=== PATIENT | male | born 1970 | race Caucasian/White ===

== ENCOUNTER 2017-10-10 12:36 | Emergency (ER) | payer OTHER ==
[2017-10-10 13:11] LABS: #Lymphocytes 1.2 thou/uL (1.20-3.40); #Monocytes 0.5 thou/uL (0.11-0.59); #Neutrophils 3.3 thou/uL (1.40-6.50); %Basophils 0.7 % (0.0-1.0); %Lymphocytes 23.3 % (21.0-51.0); %Monocytes 9.3 % (0.0-10.0); Hematocrit 39.2 % (42.0-52.0); Mean Platelet Volume 8.7 fL (7.4-10.4); Red Blood Cell (RBC) Count 4.24 mill/uL (4.70-6.10)
[2017-10-10] MEDS ORDERED: Ondansetron HCl/PF 4 MG/2 ML Vial ONE (13:11)
[2017-10-10] MEDS ORDERED: Morphine 4 MG/ML Carpuject ONE (13:11)
[2017-10-10 13:23] LABS: Lactic Acid - Sepsis 0.7 mmol/L (0.5-2.2)
[2017-10-10 13:26] LABS: Anion Gap 16 mmol/L (10-20); BUN (Urea Nitrogen) 19 mg/dL (8.9-20.6); Calc. Creatinine Clearance 0 mL/min (70-130); Carbon Dioxide 22 mmol/L (22-29); Chloride 103 mmol/L (98-107); Estimated GFR-MDRD Greater than 90
--- NOTE | 2017-10-10 14:59 | RAD ---
LEFT KNEE: Four views. HISTORY: Left knee pain and swelling. FINDINGS: There has been prior fixation in the proximal tibia with 2 screws seen in the proximal diaphysis/meta physeal region. There are mild degenerative changes with spurring from the condyles and minimal spur ring from the patella. Fullness in the suprapatellar region suggests a small joint effusion. IMPRESSION: Postoperative and degenerative changes of left knee. Evidence of small joint effusion. No acute fra cture identified. POS: MARC
--- NOTE | 2017-10-10 15:12 | ULT ---
LEFT LOWER EXTREMITY VENOUS DUPLEX EXAM: TECHNIQUE: Deep veins of left lower extremity evaluated with color Doppler, spectral analysis, and compression. HISTORY: Left lower extremity pain and edema. FINDINGS: Deep veins of left lower extremity show normal blood flow and compression. No evidence of DVT. IMPRESSION: No evidence of left lower extremity deep vein thrombosis. POS: ADRYAN
== END 2017-10-10 14:45 | disposition home or self-care (01) ==
LOC: SCSER 12:36
DX: M25.462 Effusion, left knee (principal); F31.9 Bipolar disorder, unspecified; F17.210 Nicotine dependence, cigarettes, uncomplicated; E16.2 Hypoglycemia, unspecified; Z79.899 Other long term (current) drug therapy
CPT/HCPCS: 80048; 83605; 85025; 96374; 96375; 99406; J2270; J2405

== ENCOUNTER 2019-03-11 10:28 | Emergency (ER) | payer OTHER ==
[~2019-03-11 10:28] MED LIST: Iopamidol 370 76% 100 ML VIAL ONE
[2019-03-11] MEDS ORDERED: Dexamethasone 10 MG/ML VIAL ONE (11:11)
[2019-03-11] MEDS ORDERED: Dexamethasone 4 MG TAB ONE (11:11)
[2019-03-11] MEDS ORDERED: Ketorolac Tromethamine 30 MG/ML VIAL ONE (11:11)
[2019-03-11 11:31] LABS: #Basophils 0.1 thou/uL (0.0-0.2); #Eosinphils 0.1 thou/uL (0.0-0.7); #Lymphocytes 1.4 thou/uL (1.20-3.40); #Monocytes 0.6 thou/uL (0.11-0.59); #Neutrophils 4.1 thou/uL (1.40-6.50); %Eosinophils 1.2 % (0.0-10.0); %Lymphocytes 23.1 % (21.0-51.0); %Monocytes 9.1 % (0.0-10.0); %Neutrophils 65.6 % (42.0-75.0); Hemoglobin 13.7 g/dL (14.0-18.0); Mean Corpuscular HGB CONC 33.7 g/dL (32.0-36.0); Mean Corpuscular Hemoglobin 30.8 pg (27.0-31.0); Mean Corpuscular Volume 91.5 fL (78.0-98.0); Mean Platelet Volume 8.5 fL (7.4-10.4); Platelet Count 199 thou/uL (130-400); RBC Distribution Width 12.2 % (11.5-14.5); Red Blood Cell (RBC) Count 4.45 mill/uL (4.70-6.10); White Blood Cell (WBC) Count 6.3 thou/uL (4.8-10.8)
[2019-03-11 11:49] LABS: ALT (SGPT) 13 U/L (8-55); AST (SGOT) 17 U/L (5-34); Albumin 4.1 g/dL (3.5-5.0); Alkaline Phosphatase 53 U/L (40-150); Anion Gap 12 mmol/L (10-20); BUN (Urea Nitrogen) 19 mg/dL (8.9-20.6); Bilirubin, Total 0.3 mg/dL (0.2-1.2); Calc. Creatinine Clearance 0 mL/min (70-130); Calcium 9.5 mg/dL (7.8-10.44); Carbon Dioxide 24 mmol/L (22-29); Chloride 105 mmol/L (98-107); Estimated GFR-MDRD Greater than 90; Globulin 3.5 g/dL (2.4-3.5); Glucose 98 mg/dL (70-105); Potassium 4.2 mmol/L (3.5-5.1); Protein, Total 7.6 g/dL (6.0-8.3); Sodium 137 mmol/L (136-145)
--- NOTE | 2019-03-11 11:59 | CT ---
CT of the neck with IV contrast: 03/11/2019 COMPARISON: None HISTORY: Swelling of the neck on the right, evaluate for lymphadenopathy TECHNIQUE: Axial CT imaging at 2 mm intervals from the skull base through the lung apices with IV con trast. Coronal reformatted imaging is obtained. FINDINGS: The imaged brain parenchyma appears unremarkable. The imaged paranasal sinuses and mastoid air cells appear well-aerated. The retroantral fat and the parapharyngeal fat appears clear bilaterally. The parotid duct is dilated within the parotid gland as well as anterior to the parotid gland bilater ally. No sialolith is appreciated in the region of the parotid gland or along the course of the parotid duct on either side. The submandibular gland on the left appears unremarkable. Submandibular gland on the right is hyperdense, enlarged, and demonstrates intragland ductal dilation . There is a prominent sialolith at the superior medial margin of the submandibular gland on the right measuring 1.1 cm. There is stranding of the fat adjacent to the enlarged right submandibular gl and consistent with sialoadenitis. The imaged lung apices demonstrate biapical subpleural emphysematous change. The tonsillar pillars, epiglottis and epiglottic fat, hyoid bone, thyroid cartilage, cricoid cartilag e, and thyroid gland demonstrate no acute findings. There is no lymphadenopathy evident on either side. The vascular structures of the neck appear patent. Review of the osseous structures demonstrates no worrisome lytic or blastic lesions. IMPRESSION: The submandibular gland on the right is enlarged and hyperdense with adjacent inflammator y fat stranding consistent with sialoadenitis. This is associated with a prominent sialolith measuring 1.1 cm abutting the superior medial aspect of the right submandibular gland within the prox imal aspect of Sarpy's duct.
[2019-03-11] MEDS ORDERED: CEFAZOLIN 1 GM VIAL ONE (12:42)
== END 2019-03-11 12:50 | disposition home or self-care (01) ==
LOC: SCSER 10:28
DX: K11.5 Sialolithiasis (principal); F31.9 Bipolar disorder, unspecified
CPT/HCPCS: 70491; 80053; 84443; 85025; 96374; 96375; J0690; J1100; J1885; J8540; Q9967

== ENCOUNTER 2022-03-15 15:59 | Emergency (ER) | payer OTHER | END 2022-03-15 18:05 | disposition home or self-care (01) | LOC: EEVIPCON 15:59 → ERS 15:59 | DX: M25.511 Pain in right shoulder (principal); F17.210 Nicotine dependence, cigarettes, uncomplicated; Z79.899 Other long term (current) drug therapy ==

== ENCOUNTER 2022-11-24 16:28 | Inpatient (IN) | payer OTHER ==
[~2022-11-24 16:28] MED LIST changes: -Iopamidol 370 76% 100 ML VIAL ONE; +Iopamidol-370 76% 500 ML 1 ML ONE
[2022-11-24] MEDS ORDERED: Fentanyl 100 MCG/2 ML VIAL ONE (16:37)
[2022-11-24 16:43] LABS: #Lymphocytes 1.3 thou/uL (1.20-3.40); #Monocytes 0.6 thou/uL (0.11-0.59); #Neutrophils 4.7 thou/uL (1.40-6.50); %Basophils 0.6 % (0.0-1.0); %Eosinophils 0.6 % (0.0-10.0); %Lymphocytes 19.7 % (21.0-51.0); %Monocytes 8.8 % (0.0-10.0); %Neutrophils 70.2 % (42.0-75.0); Hemoglobin 9.8 g/dL (14.0-18.0); Mean Corpuscular Hemoglobin 31.4 pg (27.0-31.0); Mean Corpuscular Volume 95.1 fl (78.0-98.0); Mean Platelet Volume 9.4 fL (7.4-10.4); Platelet Count 171 10x3/uL (130-400); RBC Distribution Width 12.2 % (11.5-14.5); Red Blood Cell (RBC) Count 3.13 mill/uL (4.70-6.10); White Blood Cell (WBC) Count 6.7 10x3/uL (4.8-10.8)
[2022-11-24] MEDS ORDERED: Ipratropium/Albuterol 3 ML NEB NEB PRN (17:05)
[2022-11-24] MEDS ORDERED: Dextrose 5% in Water 1,000 ML IV PRN (17:05)
[2022-11-24] MEDS ORDERED: hydrALAZINE 20 MG/ML VIAL SLOW IVP PRN (17:05)
[2022-11-24] MEDS ORDERED: Dextrose 50% Abboject 50 ML SYRINGE SLOW IVP PRN (17:05)
[2022-11-24] MEDS ORDERED: Ondansetron PF 4 MG/2 ML Vial IVP PRN (17:05)
[2022-11-24] MEDS ORDERED: Ibuprofen 200 MG TAB PO PRN (17:08)
[2022-11-24 17:15] LABS: INR-International Normal Ratio 1.3; Prothrombin Time 16.9 sec (12.0-14.7)
[2022-11-24] MEDS ORDERED: Sodium Chloride 0.9% 1,000 ML IV SCH (17:15)
[2022-11-24 17:16] LABS: PTT 29.7 sec (22.9-36.1)
[2022-11-24 17:29] LABS: Albumin 2.7 g/dL (3.5-5.0)
[2022-11-24 17:30] LABS: Chloride 114 mmol/L (98-107); Potassium 3.7 mmol/L (3.5-5.1); Sodium 139 mmol/L (136-145)
[2022-11-24 17:31] LABS: Glucose 107 mg/dL (70-105)
[2022-11-24 17:32] LABS: Globulin 2.2 g/dL (2.4-3.5); Protein, Total 4.9 g/dL (6.0-8.3)
[2022-11-24 17:33] LABS: Anion Gap 11 mmol/L (10-20); Bilirubin, Total 0.3 mg/dL (0.2-1.2); Carbon Dioxide 18 mmol/L (22-29)
[2022-11-24 17:36] LABS: Alkaline Phosphatase 34 U/L (40-110); BUN (Urea Nitrogen) 17 mg/dL (8.4-25.7); Calc. Creatinine Clearance 0 mL/min (70-130); Estimated GFR 105
[2022-11-24 17:37] LABS: ALT (SGPT) 8 U/L (8-55); AST (SGOT) 15 U/L (5-34)
[2022-11-24 17:54] LABS: Calcium 6.5 mg/dL (7.8-10.44)
[2022-11-24] MEDS: Fentanyl 100 MCG/2 ML VIAL SLOW IVP PRN ×2 (18:45→21:30)
[2022-11-24 18:46] LABS: SARS-CoV-2 NAA Rapid Test Not Detected (NotDetected)
[2022-11-24] MEDS ORDERED: Calcium Chloride 13.6 MEQ in Sodium Chloride 0.9% 100 ML IVPB SCH (20:00)
[2022-11-24] MEDS: Gabapentin 300 MG CAP PO SCH (20:31)
[2022-11-24] MEDS: Cyclobenzaprine 10 MG TAB PO PRN (20:31)
[2022-11-24] MEDS: Senokot S 8.6-50 MG TAB PO SCH (20:31)
[2022-11-24] MEDS: Famotidine/PF 20 mg/2ml Vial SLOW IVP SCH (20:33)
[2022-11-24] MEDS: CEFAZOLIN 2 GM in Sodium Chloride 0.9% 100 ML IVPB SCH (20:34)
[2022-11-24] MEDS: Acetaminophen 500 MG TAB PO SCH (23:04)
[2022-11-24] MEDS: traMADol HCl 50 MG TAB PO SCH (23:05)
[2022-11-25] MEDS: Fentanyl 100 MCG/2 ML VIAL SLOW IVP PRN ×6 (00:11→22:20)
[2022-11-25 00:54] VITALS: BMI 24.3
[2022-11-25] MEDS: CEFAZOLIN 2 GM in Sodium Chloride 0.9% 100 ML IVPB SCH ×3 (04:13→20:00)
[2022-11-25 05:13] LABS: #Lymphocytes 1.4 thou/uL (1.20-3.40); #Monocytes 0.6 thou/uL (0.11-0.59); #Neutrophils 4.6 thou/uL (1.40-6.50); %Basophils 0.2 % (0.0-1.0); %Eosinophils 0.2 % (0.0-10.0); %Lymphocytes 20.9 % (21.0-51.0); %Monocytes 9.4 % (0.0-10.0); %Neutrophils 69.2 % (42.0-75.0); Hemoglobin 11.2 g/dL (14.0-18.0); Mean Corpuscular HGB CONC 32.9 g/dL (32.0-36.0); Mean Corpuscular Hemoglobin 30.5 pg (27.0-31.0); Mean Corpuscular Volume 92.6 fl (78.0-98.0); Mean Platelet Volume 8.6 fL (7.4-10.4); Platelet Count 200 10x3/uL (130-400); RBC Distribution Width 13.4 % (11.5-14.5); Red Blood Cell (RBC) Count 3.66 mill/uL (4.70-6.10); White Blood Cell (WBC) Count 6.6 10x3/uL (4.8-10.8)
[2022-11-25 05:44] LABS: Anion Gap 11 mmol/L (10-20); BUN (Urea Nitrogen) 20 mg/dL (8.4-25.7); Calc. Creatinine Clearance 125 mL/min (70-130); Calcium 8.3 mg/dL (7.8-10.44); Carbon Dioxide 21 mmol/L (22-29); Chloride 108 mmol/L (98-107); Estimated GFR 107; Glucose 81 mg/dL (70-105); Magnesium 1.8 mg/dL (1.6-2.6); Phosphorus 4.2 mg/dL (2.3-4.7); Potassium 3.8 mmol/L (3.5-5.1); Sodium 136 mmol/L (136-145)
[2022-11-25] MEDS: Acetaminophen 500 MG TAB PO SCH ×3 (06:11→17:52)
[2022-11-25] MEDS: traMADol HCl 50 MG TAB PO SCH ×3 (06:11→17:53)
[2022-11-25] MEDS: Cyclobenzaprine 10 MG TAB PO PRN ×3 (06:12→22:25)
[2022-11-25] MEDS: Famotidine/PF 20 mg/2ml Vial SLOW IVP SCH ×2 (08:40→22:26)
[2022-11-25] MEDS: Gabapentin 300 MG CAP PO SCH ×3 (08:40→22:25)
[2022-11-25] MEDS: Senokot S 8.6-50 MG TAB PO SCH ×2 (08:40→22:26)
[2022-11-25] MEDS: Polyethylene Glycol 3350 17 GM Packet PO SCH (08:41)
[2022-11-25] MEDS ORDERED: TETANUS, DIPHTHERIA TOX,ADULT (TDVAX) 0.5 ML VIAL IM ONE (11:36)
[2022-11-25] MEDS: Cephalexin 250 MG CAP PO SCH (17:52)
[2022-11-26] MEDS: Cephalexin 250 MG CAP PO SCH ×4 (00:20→18:05)
[2022-11-26] MEDS: Acetaminophen 500 MG TAB PO SCH ×4 (00:20→18:06)
[2022-11-26] MEDS: Fentanyl 100 MCG/2 ML VIAL SLOW IVP PRN ×3 (00:25→10:30)
[2022-11-26] MEDS: traMADol HCl 50 MG TAB PO SCH ×4 (00:32→18:07)
[2022-11-26] MEDS: CEFAZOLIN 2 GM in Sodium Chloride 0.9% 100 ML IVPB SCH (05:30)
[2022-11-26] MEDS ORDERED: TETANUS, DIPHTHERIA TOX,ADULT (TDVAX) 0.5 ML VIAL IM ONE (08:30)
[2022-11-26] MEDS: Polyethylene Glycol 3350 17 GM Packet PO SCH (09:38)
[2022-11-26] MEDS: Bacitracin 1 PK TOP PRN (09:39)
[2022-11-26] MEDS: Famotidine/PF 20 mg/2ml Vial SLOW IVP SCH ×2 (09:39→20:52)
[2022-11-26] MEDS: Gabapentin 300 MG CAP PO SCH ×3 (09:39→20:52)
[2022-11-26] MEDS: Senokot S 8.6-50 MG TAB PO SCH ×2 (09:39→20:52)
[2022-11-27] MEDS: Acetaminophen 500 MG TAB PO SCH ×4 (00:21→18:06)
[2022-11-27] MEDS: Cephalexin 250 MG CAP PO SCH ×4 (00:21→18:06)
[2022-11-27] MEDS: traMADol HCl 50 MG TAB PO SCH ×2 (00:21→05:48)
[2022-11-27] MEDS: Famotidine 20 MG TAB PO SCH ×2 (08:45→20:19)
[2022-11-27] MEDS: Polyethylene Glycol 3350 17 GM Packet PO SCH (08:45)
[2022-11-27] MEDS: Gabapentin 300 MG CAP PO SCH ×3 (08:45→20:19)
[2022-11-27] MEDS: Cyclobenzaprine 10 MG TAB PO PRN ×2 (08:45→18:06)
[2022-11-27] MEDS: Senokot S 8.6-50 MG TAB PO SCH ×2 (08:45→20:19)
[2022-11-28] MEDS: Cephalexin 250 MG CAP PO SCH ×5 (00:47→23:25)
[2022-11-28] MEDS: Acetaminophen 500 MG TAB PO SCH ×4 (00:47→18:08)
[2022-11-28] MEDS: Senokot S 8.6-50 MG TAB PO SCH ×2 (09:09→21:13)
[2022-11-28] MEDS: Polyethylene Glycol 3350 17 GM Packet PO SCH (09:09)
[2022-11-28] MEDS: Famotidine 20 MG TAB PO SCH ×2 (09:10→21:12)
[2022-11-28] MEDS: Gabapentin 300 MG CAP PO SCH ×3 (09:10→21:13)
[2022-11-28] MEDS: Cyclobenzaprine 10 MG TAB PO PRN (09:10)
[2022-11-28] MEDS: Lorazepam 0.5 MG TAB PO PRN ×2 (11:44→18:11)
[2022-11-28] MEDS: Bacitracin 1 PK TOP PRN (14:54)
[2022-11-28] MEDS ORDERED: Acetaminophen 325 MG TAB PO SCH (18:45)
[2022-11-28] MEDS ORDERED: Acetaminophen/Codeine 30-300mg Tablet PO SCH (18:45)
[2022-11-28] MEDS: Acetaminophen 325 MG TAB PO SCH (23:24)
[2022-11-28] MEDS: Acetaminophen/Codeine 30-300mg Tablet PO SCH (23:25)
[2022-11-29] MEDS: Cyclobenzaprine 10 MG TAB PO PRN ×2 (01:58→15:05)
[2022-11-29] MEDS: Acetaminophen/Codeine 30-300mg Tablet PO SCH ×4 (05:07→22:55)
[2022-11-29] MEDS: Acetaminophen 325 MG TAB PO SCH (05:07)
[2022-11-29] MEDS: Cephalexin 250 MG CAP PO SCH ×4 (05:08→22:55)
[2022-11-29] MEDS: Famotidine 20 MG TAB PO SCH ×2 (08:13→20:27)
[2022-11-29] MEDS: Senokot S 8.6-50 MG TAB PO SCH ×2 (08:13→20:29)
[2022-11-29] MEDS: Gabapentin 300 MG CAP PO SCH ×3 (08:14→20:28)
[2022-11-29] MEDS: Polyethylene Glycol 3350 17 GM Packet PO SCH (09:37)
[2022-11-29] MEDS: Ibuprofen 200 MG TAB PO SCH ×2 (15:05→22:54)
[2022-11-29] MEDS: Lorazepam 0.5 MG TAB PO PRN (16:26)
[2022-11-29] MEDS ORDERED: Bisacodyl 10 MG SUPP PR PRN (17:29)
[2022-11-30] MEDS: Acetaminophen/Codeine 30-300mg Tablet PO SCH ×4 (04:59→23:05)
[2022-11-30] MEDS: Ibuprofen 200 MG TAB PO SCH ×3 (04:59→23:05)
[2022-11-30] MEDS: Cephalexin 250 MG CAP PO SCH ×4 (04:59→23:05)
[2022-11-30] MEDS: Gabapentin 300 MG CAP PO SCH ×3 (08:54→20:03)
[2022-11-30] MEDS: Senokot S 8.6-50 MG TAB PO SCH ×2 (08:54→20:04)
[2022-11-30] MEDS: Famotidine 20 MG TAB PO SCH ×2 (08:54→20:04)
[2022-11-30] MEDS: Polyethylene Glycol 3350 17 GM Packet PO SCH (08:54)
[2022-11-30] MEDS: Cyclobenzaprine 10 MG TAB PO PRN (23:07)
[2022-12-01] MEDS: Cephalexin 250 MG CAP PO SCH ×3 (05:19→18:50)
[2022-12-01] MEDS: Acetaminophen/Codeine 30-300mg Tablet PO SCH ×3 (05:19→18:47)
[2022-12-01] MEDS: Ibuprofen 200 MG TAB PO SCH ×3 (05:20→21:42)
[2022-12-01] MEDS: Famotidine 20 MG TAB PO SCH ×2 (08:32→21:42)
[2022-12-01] MEDS: Polyethylene Glycol 3350 17 GM Packet PO SCH (08:32)
[2022-12-01] MEDS: Senokot S 8.6-50 MG TAB PO SCH ×2 (08:32→21:47)
[2022-12-01] MEDS: Gabapentin 300 MG CAP PO SCH ×3 (08:33→21:41)
[2022-12-01] MEDS: Cyclobenzaprine 10 MG TAB PO PRN (08:38)
[2022-12-01] MEDS: hydrOXYzine Pamoate 25 mg Capsule PO SCH ×2 (14:34→21:42)
[2022-12-01] MEDS ORDERED: Aripiprazole 10 MG TAB PO SCH (21:00)
[2022-12-02] MEDS: Cephalexin 250 MG CAP PO SCH ×2 (00:15→06:09)
[2022-12-02] MEDS: Acetaminophen/Codeine 30-300mg Tablet PO SCH ×2 (00:15→06:09)
[2022-12-02] MEDS: Ibuprofen 200 MG TAB PO SCH (06:09)
[2022-12-02 08:03] VITALS: BP 114/71; TEMP 97.5
[2022-12-02] MEDS ORDERED: VORTIOXETINE HYDROBROMIDE 5 MG PO SCH (09:00)
[2022-12-02] MEDS: Famotidine 20 MG TAB PO SCH (09:14)
[2022-12-02] MEDS: Gabapentin 300 MG CAP PO SCH (09:14)
[2022-12-02] MEDS: hydrOXYzine Pamoate 25 mg Capsule PO SCH (09:15)
[2022-12-02] MEDS: Senokot S 8.6-50 MG TAB PO SCH (09:16)
== END 2022-12-02 10:39 | disposition home or self-care (01) | DRG 566 ==
LOC: EEVIPCON 16:28 → ERS 16:28 → SURG A 18:16
PROVIDERS: ADMIT Surgery; ATTEND Surgery
PROC: 30233N1 Transfusion of Nonautologous Red Blood Cells into Peripheral Vein, Percutaneous Approach (ICD-10-PCS; principal; 2022-11-24)
DX: S42.11 Fracture of body of scapula (principal); F31.9 Bipolar disorder, unspecified; F17.210 Nicotine dependence, cigarettes, uncomplicated; S21.232A Puncture wound without foreign body of left back wall of thorax without penetration into thoracic cavity, initial encounter; S91.332A Puncture wound without foreign body, left foot, initial encounter; W34.09XA Accidental discharge from other specified firearms, initial encounter; Y99.9 Unspecified external cause status; Z88.5 Allergy status to narcotic agent; Z98.890 Other specified postprocedural states; Z20.822 Contact with and (suspected) exposure to COVID-19
CPT/HCPCS: 36415; 36430; 71045; 71260; 74177; 80048; 80053; 83735; 84100; 85025; 85610; 85730; 86850; 86900; 86901; 87811; 90714; 96374; 97139; G0390; J1650; J2405; J3010; J3490; J7050; P9016; Q0177; Q9967; S0028